=== PATIENT | male | born 1960 | race Two or more races ===

== ENCOUNTER 2020-06-25 11:07 | Outpatient (CLI) | payer OTHER | END 2020-06-25 13:01 | disposition home or self-care (01) | LOC: OFIC 805 11:07 | PROVIDERS: ATTEND Otolaryngology Otology & Neurotology | DX: H92.03 Otalgia, bilateral (principal); H61.23 Impacted cerumen, bilateral ==

== ENCOUNTER 2021-07-29 08:10 | Outpatient (CLI) | payer OTHER | END 2021-07-29 08:40 | disposition home or self-care (01) | LOC: TOM 08:10 | DX: Z12.11 Encounter for screening for malignant neoplasm of colon (principal) ==

== ENCOUNTER 2021-10-01 07:17 | Outpatient (CLI) | payer OTHER | END 2021-10-01 07:20 | disposition home or self-care (01) | LOC: NUCLEAR 07:17 | PROVIDERS: ATTEND Internal Medicine | DX: M15.9 Polyosteoarthritis, unspecified (principal); M06.4 Inflammatory polyarthropathy; M32.9 Systemic lupus erythematosus, unspecified; M05.9 Rheumatoid arthritis with rheumatoid factor, unspecified; Z88.0 Allergy status to penicillin ==

== ENCOUNTER 2021-11-05 13:29 | Outpatient (CLI) | payer OTHER | END 2021-11-05 13:32 | disposition home or self-care (01) | LOC: TOM 13:29 | PROVIDERS: ATTEND Internal Medicine | DX: S20.219A Contusion of unspecified front wall of thorax, initial encounter (principal); S22.39XB Fracture of one rib, unspecified side, initial encounter for open fracture ==

== ENCOUNTER 2021-12-08 13:48 | Outpatient (CLI) | payer OTHER | END 2021-12-08 13:49 | disposition home or self-care (01) | LOC: LAB 13:48 | PROVIDERS: ATTEND Radiology Diagnostic Radiology | DX: R10.84 Generalized abdominal pain (principal) ==

== ENCOUNTER 2022-01-15 09:06 | Outpatient (CLI) | payer OTHER | END 2022-01-15 14:56 | disposition home or self-care (01) | LOC: TOM 09:06 | PROVIDERS: ATTEND Internal Medicine Gastroenterology | DX: R10.84 Generalized abdominal pain (principal) | CPT/HCPCS: 74175 ==

== ENCOUNTER 2023-09-23 11:31 | Outpatient (CLI) | payer OTHER | END 2023-09-23 11:32 | disposition home or self-care (01) | LOC: NUCLEAR 11:31 | PROVIDERS: ATTEND Orthopaedic Surgery | DX: M25.551 Pain in right hip (principal); M54.50 Low back pain, unspecified ==

== ENCOUNTER 2023-09-23 12:59 | Outpatient (CLI) | payer OTHER | END 2023-09-23 13:02 | disposition home or self-care (01) | LOC: RAD 12:59 | PROVIDERS: ATTEND Orthopaedic Surgery | DX: M25.551 Pain in right hip (principal); M54.50 Low back pain, unspecified ==

== ENCOUNTER 2023-09-28 12:39 | Outpatient (CLI) | payer OTHER | END 2023-09-28 12:43 | disposition home or self-care (01) | LOC: RAD 12:39 | PROVIDERS: ATTEND Orthopaedic Surgery | DX: M25.551 Pain in right hip (principal); M54.50 Low back pain, unspecified ==

== ENCOUNTER 2023-10-04 12:40 | Outpatient (CLI) | payer OTHER | END 2023-10-04 12:46 | disposition home or self-care (01) | LOC: RAD 12:40 | DX: R07.9 Chest pain, unspecified (principal) ==

== ENCOUNTER 2023-11-04 13:38 | Outpatient (CLI) | payer OTHER | END 2023-11-04 13:54 | disposition home or self-care (01) | LOC: MRI 13:38 | PROVIDERS: ATTEND Orthopaedic Surgery | DX: M25.851 Other specified joint disorders, right hip (principal) | CPT/HCPCS: 73721 ==

== ENCOUNTER 2024-02-15 16:07 | Outpatient (CLI) | payer OTHER | END 2024-02-15 16:16 | disposition home or self-care (01) | LOC: RAD 16:07 | PROVIDERS: ATTEND Orthopaedic Surgery | DX: M25.552 Pain in left hip (principal); M54.50 Low back pain, unspecified ==

== ENCOUNTER 2024-04-11 09:55 | Outpatient (CLI) | payer OTHER ==
[2024-04-11 11:47] LABS: ALBUMIN 3.9 gm/dL (3.4-5.0); BILIRUBIN TOTAL 0.37 mg/dL (0.3-1.2); CALCIUM 9.4 mg/dL (8.5-10.1); CREATININE SERUM 0.66 mg/dL (0.70-1.30); GFR 121.13; MAGNESIUM 2.3 mg/dL (1.8-2.4); PHOSPHOROUS 3.1 mg/dL (2.5-4.9); POTASSIUM 4.68 mEq/L (3.5-5.1); TOTAL PROTEIN 7.9 gm/dL (6.4-8.2)
[2024-04-12 14:08] LABS: CALCIUM IONIZED 5.1 mg/dL (4.5-5.6); VITAMIN D 1 25 31.4 pg/mL (24.8-81.5)
== END 2024-04-11 11:20 | disposition home or self-care (01) ==
LOC: LAB 09:55
PROVIDERS: ATTEND Orthopaedic Surgery
DX: E55.9 Vitamin D deficiency, unspecified (principal); M85.9 Disorder of bone density and structure, unspecified; E56.1 Deficiency of vitamin K; E21.3 Hyperparathyroidism, unspecified; E88.89 Other specified metabolic disorders; M81.8 Other osteoporosis without current pathological fracture; R68.89 Other general symptoms and signs; R79.89 Other specified abnormal findings of blood chemistry; Z11.59 Encounter for screening for other viral diseases

== ENCOUNTER 2024-07-16 13:46 | Outpatient (CLI) | payer OTHER | END 2024-07-16 13:54 | disposition home or self-care (01) | LOC: RAD 13:46 | PROVIDERS: ATTEND Orthopaedic Surgery | DX: M25.551 Pain in right hip (principal); M87.052 Idiopathic aseptic necrosis of left femur ==

== ENCOUNTER 2024-12-17 13:40 | Outpatient (CLI) | payer OTHER | END 2024-12-17 13:44 | disposition home or self-care (01) | LOC: MRI 13:40 | PROVIDERS: ATTEND Orthopaedic Surgery | DX: M87.052 Idiopathic aseptic necrosis of left femur (principal) | CPT/HCPCS: 73721 ==

== ENCOUNTER 2025-01-29 14:13 | Outpatient (CLI) | payer OTHER | END 2025-01-29 14:16 | disposition home or self-care (01) | LOC: RAD 14:13 | PROVIDERS: ATTEND Orthopaedic Surgery | DX: M87.052 Idiopathic aseptic necrosis of left femur (principal) ==